=== PATIENT | female | born 1950 | race Hispanic/Latino ===

== ENCOUNTER → 2019-06-13 | Emergency (ER) | payer MEDICARE ==
[~2019-06-13] VITALS: Ht 154.9 cm; Wt 81.6 kg
[~2019-06-13] MED LIST: AMLODIPINE BESY10 MG PO; ASPIR 8181 MG PO; ASPIRIN 81 MG CHEW TAB PO ONE; ATORVASTATIN CA80 MG PO; BENZONATATE100 MG PO; CLOPIDOGREL75 MG PO; DICYCLOMINE HCL20 MG PO; ISOSORBIDE MONO20 MG PO; LISINOPRIL10 MG PO; METFORMIN HCL500 MG PO; METOPROLOL TART50 MG PO; NITROGLYCERIN0.4 MG SL; PANTOPRAZOLE SO40 MG PO; SUCRALFATE1 GM PO
--- OUTSIDE RECORDS SUMMARY | 2019-06-13 21:38 | XMS REPORT ---
Author Author [facility] Address Unknown Phone Unavailable Care Team Providers Care Financial Representative Name Role Phone Unavailable Unavailable Payers Payer Name Policy Type Policy Number Effective Date Expiration Date Problems This patient has no known problems. Allergies, Adverse Reactions, Alerts Allergy Name Allergy Type Status Severity Reaction(s) Onset Date Inactive Date Treating Clinician Comments No Known Allergies DA Active U 2011-08-03 00:00:00 Medications This patient has no known medications. Encounters Start Date/Time End Date/Time Encounter Type Admission Type Attending Clinicians Care Facility Care Department Encounter ID 2017-07-11 00:00:00 2017-07-11 00:00:00 Outpatient [facility] [id number] 2017-05-18 09:12:15 2017-05-18 09:12:15 Outpatient [facility] [id number] 2017-05-03 08:00:41 2017-05-03 08:00:41 Outpatient [facility] [id number] 2017-05-02 08:54:40 2017-05-02 08:54:40 Outpatient [facility] [id number] 2017-03-31 09:50:01 2017-03-31 09:50:01 Outpatient [facility] [id number] Results Test Description Test Time Test Comments Text Results Atomic Results Result Comments SCR MAMM BILATERAL MADAI CAD DIGITAL 2019-03-19 13:45:33 - SCR MAMM BILATERAL MADAI CAD DIGITALBILATERAL DIGITAL SCREENING MAMMOGRAM 3D/2D WITH CAD: 03/19/2019CLINICAL: Asymptomatic. Digital breast tomosynthesis was performed in addition to routine CC and MLO views. Current mammographic images were evaluated by either a [employer] M-Vu or a [employer] ImageChecker CAD (computer aided detection system). Comparison is made to exams dated 03/17/2018 mammogram - [facility], 08/26/2016 mammogram, and 07/30/2015 mammogram - [facility]. The tissue of both breasts is predominantly fatty. There are benign calcifications in both breasts. No suspicious mass, architectural distortion, malignant type calcification, or lymph node abnormality detected. Breast architecture is stable compared to prior exams.IMPRESSION: BENIGNThere is no mammographic evidence of malignancy. Resume annual screening mammography in one year. Lucas Lorenzo M.D. ss/penrad:03/19/2019 13:45:33 Automotive Refinisher: Nelia RIOS, [facility] sent: BIRADS 1-2 Normal Mammogram BI-RADS: 2 Benign GLUBED 2019-01-23 11:37:00 GLUBED (test code=GLUBED) 192 mg/dL 74-106 Performed by certified annealing oven operator at [facility] [id number] 06:17:00* Test Item Value Reference Range Comments GLUBED (test code=GLUBED) 116 mg/dL 74-106 Performed by certified annealing oven operator at [facility] BASIC METABOLIC [id number] 21:46:00* Test Item Value Reference Range Comments SODIUM (test code=NA) 139 mmol/L 136-145 POTASSIUM (test code=K) 4.0 mmol/L 3.5-5.1 CHLORIDE (test code=CL) 108.0 mmol/L 98-107 CARBON DIOXIDE (test code=CO2) 24.0 mmol/L 21-32 ANION GAP (test code=GAP) 11.0 10-20 GLUCOSE (test code=GLU) 163 mg/dL 74-106 BLOOD UREA NITROGEN (test code=BUN) 16 mg/dL 7-18 GLOMERULAR FILTRATION RATE (test code=GFR) > 60 mL/min >=60 Estimated GFR by using Modified MDRD formula.Chronic kidney disease is defined as either kidney damageor GFR <60 mL/min/1.73 m2 for >3 months. CREATININE (test code=CREAT) 0.80 mg/dL 0.55-1.02 Note change in reference range due to change in reagent. BUN/CREATININE RATIO (test code=BUN/CREA) 21.0 10-20 CALCIUM (test code=CA) 7.7 mg/dL 8.5-10.1 BASIC METABOLIC [id number] 21:39:00* Test Item Value Reference Range Comments SODIUM (test code=NA) 139 mmol/L 136-145 POTASSIUM (test code=K) 4.0 mmol/L 3.5-5.1 CHLORIDE (test code=CL) 108.0 mmol/L 98-107 CARBON DIOXIDE (test code=CO2) mmol/L 21-32 ANION GAP (test code=GAP) 10-20 GLUCOSE (test code=GLU) mg/dL 74-106 BLOOD UREA NITROGEN (test code=BUN) mg/dL 7-18 GLOMERULAR FILTRATION RATE (test code=GFR) mL/min >=60 CREATININE (test code=CREAT) mg/dL 0.55-1.02 BUN/CREATININE RATIO (test code=BUN/CREA) 10-20 CALCIUM (test code=CA) mg/dL 8.5-10.1 PROTHROMBIN [id number] 21:31:00* Test Item Value Reference Range Comments PROTHROMBIN TIME PATIENT (test code=PTP) 11.5 seconds 9.0-14.0 INTERNATIONAL NORMAL RATIO (test code=INR) 1.0 0.8-1.2 The therapeutic range for oral anticoagulant therapy formost indications is an international normalized ratio (INR)of between 2.0 and 3.0. The recommended therapeutic INRrange for various clinical situations is listed below: Clinical Situation INR range Pulmonary e mbolism treatment (2.0-3.0)Venous thrombosis treatmentVenous thrombosis prophylaxis (high risk surgery)Prevention of systemic embolism from: Acute myocardial infarction Valvular heart disease Atrial fibrillation Mechanical prosthetic heart valves (2.5-3.5) IS PATIENT ON ANTICOAGULANTS? YLIST ANTICOAGULANTS ASPIRINTHROMBOPLASTIN TIME [id number] 21:31:00* Test Item Value Reference Range Comments THROMBOPLASTIN TIME PARTIAL (test code=PTT) 28.2 seconds 25.0-36.5 IS PATIENT ON ANTICOAGULANTS? YLIST ANTICOAGULANTS ASPIRINCBC W/AUTO DIFF 2019-01-22 21:21:00* Test Item Value Reference Range Comments WHITE BLOOD CELL (test code=WBC) 10.6 K/mm3 4.5-12.5 RED BLOOD CELL (test code=RBC) 4.03 mill/mm3 3.7-5.2 HEMOGLOBIN (test code=HGB) 10.7 gram/dL 11.5-15.5 HEMATOCRIT (test code=HCT) 32.3 % 36.0-46.0 MEAN CELL VOLUME (test code=MCV) 80.1 fL 80-98 MEAN CELL HGB (test code=MCH) 26.6 picogram 27.0-33.0 MEAN CELL HGB CONCETRATION (test code=MCHC) 33.1 gram/dL 33.0-36.0 RED CELL DISTRIBUTION WIDTH (test code=RDW) 14.6 % 11.6-16.2 RED CELL DISTRIBUTION WIDTH SD (test code=RDW-SD) 42.5 fL 37.0-51.0 PLATELET COUNT (test code=PLT) 249 K/mm3 150-450 MEAN PLATELET VOLUME (test code=MPV) 9.6 fL 6.7-11.0 NEUTROPHIL % (test code=NT%) 68.7 % 39.0-69.0 IMMATURE GRANULOCYTE % (test code=IG%) 1.3 % 0.0-5.0 LYMPHOCYTE % (test code=LY%) 22.0 % 25.0-55.0 MONOCYTE % (test code=MO%) 7.8 % 0.0-10.0 EOSINOPHIL % (test code=EO%) 0.0 % 0.0-5.0 BASOPHIL % (test code=BA%) 0.2 % 0.0-1.0 NUCLEATED RBC % (test code=NRBC%) 0.0 % 0-0 NEUTROPHIL # (test code=NT#) 7.30 K/mm3 1.8-7.7 IMMATURE GRANULOCYTE # (test code=IG#) 0.14 x10 3/uL 0-0.03 LYMPHOCYTE # (test code=LY#) 2.34 K/mm3 1.0-5.0 MONOCYTE # (test code=MO#) 0.83 K/mm3 0-0.8 EOSINOPHIL # (test code=EO#) 0.00 K/mm3 0.0-0.5 BASOPHIL # (test code=BA#) 0.02 K/mm3 0.0-0.2 NUCLEATED RBC # (test code=NRBC#) 0.00 K/mm3 0.0-0.1 MANUAL DIFF REQUIRED (test code=MDIFF) NO [id number] 21:03:00* Test Item Value Reference Range Comments GLUBED (test code=GLUBED) 227 mg/dL 74-106 Performed by certified annealing oven operator at [facility] [id number] 19:21:00* Test Item Value Reference Range Comments GLUBED (test code=GLUBED) 136 mg/dL 74-106 Performed by certified annealing oven operator at [facility] COAGULATION TIME [id number] 12:23:00* Test Item Value Reference Range Comments COAGULATION TIME ACTIVATED (test code=ACT) 345 seconds 62.8-88.0 [id number] 11:44:00* Test Item Value Reference Range Comments GLUBED (test code=GLUBED) 131 mg/dL 74-106 Performed by certified annealing oven operator at [facility] PROTHROMBIN [id number] 06:55:00* Test Item Value Reference Range Comments PROTHROMBIN TIME PATIENT (test code=PTP) 11.4 seconds 9.0-14.0 INTERNATIONAL NORMAL RATIO (test code=INR) 0.9 0.8-1.2 The therapeutic range for oral anticoagulant therapy formost indications is an international normalized ratio (INR)of between 2.0 and 3.0. The recommended therapeutic INRrange for various clinical situations is listed below: Clinical Situation INR range Pulmonary e mbolism treatment (2.0-3.0)Venous thrombosis treatmentVenous thrombosis prophylaxis (high risk surgery)Prevention of systemic embolism from: Acute myocardial infarction Valvular heart disease Atrial fibrillation Mechanical prosthetic heart valves (2.5-3.5) IS PATIENT ON ANTICOAGULANTS? NTHROMBOPLASTIN TIME [id number] 06:55:00* Test Item Value Reference Range Comments THROMBOPLASTIN TIME PARTIAL (test code=PTT) 35.6 seconds 25.0-36.5 IS PATIENT ON ANTICOAGULANTS? NBASIC METABOLIC [id number] 06:49:00* Test Item Value Reference Range Comments SODIUM (test code=NA) 139 mmol/L 136-145 POTASSIUM (test code=K) 3.9 mmol/L 3.5-5.1 CHLORIDE (test code=CL) 109.0 mmol/L 98-107 CARBON DIOXIDE (test code=CO2) 22.0 mmol/L 21-32 ANION GAP (test code=GAP) 11.9 10-20 GLUCOSE (test code=GLU) 134 mg/dL 74-106 BLOOD UREA NITROGEN (test code=BUN) 20 mg/dL 7-18 GLOMERULAR FILTRATION RATE (test code=GFR) > 60 mL/min >=60 Estimated GFR by using Modified MDRD formula.Chronic kidney disease is defined as either kidney damageor GFR <60 mL/min/1.73 m2 for >3 months. CREATININE (test code=CREAT) 0.70 mg/dL 0.55-1.02 Note change in reference range due to change in reagent. BUN/CREATININE RATIO (test code=BUN/CREA) 28.3 10-20 CALCIUM (test code=CA) 8.1 mg/dL 8.5-10.1 LIPID PROFILE (CORONARY RISK)2019-01-22 06:49:00* Test Item Value Reference Range Comments TRIGLYCERIDES (test code=TRIG) 153 mg/dL 20-150 CHOLESTEROL (test code=CHOL) 158 mg/dL 0-200 CHOLESTEROL/HDL RATIO (test code=CHOLHDL) 3.0 RATIO 0-4.9 RISK ASSOCIATED WITH CHOL/HDL RATIOS: Risk Male Female1/2 AVERAGE 3.43 3.27AVERAGE 4.97 4.442X AVERAGE 9.55 7.053X AVERAGE 23.39 11.04 REFERENCE VALUE IS RELATED TO RISK LEVELS ASRECOMMENDED BY THE MANUEL. HEART, LUNG, AND BLOOD INST. HDL CHOLESTEROL (test code=HDL) 40 mg/dL 40-60 LIPOPROTEIN LDL (test code=LDL) 108 mg/dL 100-129 RN PERSONNEL, CONTACT PHYSICIAN IMMEDIATELY IF THIS IS A STROKE, AMI OR CAROTID STENOSIS PATIENT WHEN THE LDL >100 (1ST OCCURENCE, THIS ADMISSION) Reference Interval: mg/dL mmol/L Optimal <100 <2.6Near/above optimal 100-129 2.6- 3.3Borderline High 130-159 3.4-4.1High 160-189 4.1-4.9Very High >=190 >=4.9=========This LDL result is a direct measurement.========= BASIC METABOLIC [id number] 06:43:00* Test Item Value Reference Range Comments SODIUM (test code=NA) 139 mmol/L 136-145 POTASSIUM (test code=K) 3.9 mmol/L 3.5-5.1 CHLORIDE (test code=CL) 109.0 mmol/L 98-107 CARBON DIOXIDE (test code=CO2) mmol/L 21-32 ANION GAP (test code=GAP) 10-20 GLUCOSE (test code=GLU) mg/dL 74-106 BLOOD UREA NITROGEN (test code=BUN) mg/dL 7-18 GLOMERULAR FILTRATION RATE (test code=GFR) mL/min >=60 CREATININE (test code=CREAT) mg/dL 0.55-1.02 BUN/CREATININE RATIO (test code=BUN/CREA) 10-20 CALCIUM (test code=CA) mg/dL 8.5-10.1 LIPID PROFILE (CORONARY RISK)2019-01-22 06:43:00* Test Item Value Reference Range Comments TRIGLYCERIDES (test code=TRIG) mg/dL 20-150 CHOLESTEROL (test code=CHOL) mg/dL 0-200 CHOLESTEROL/HDL RATIO (test code=CHOLHDL) RATIO 0-4.9 HDL CHOLESTEROL (test code=HDL) mg/dL 40-60 LIPOPROTEIN LDL (test code=LDL) mg/dL 100-129 CBC W/AUTO [id number] 06:26:00* Test Item Value Reference Range Comments WHITE BLOOD CELL (test code=WBC) 10.7 K/mm3 4.5-12.5 RED BLOOD CELL (test code=RBC) 4.35 mill/mm3 3.7-5.2 HEMOGLOBIN (test code=HGB) 11.4 gram/dL 11.5-15.5 HEMATOCRIT (test code=HCT) 34.4 % 36.0-46.0 MEAN CELL VOLUME (test code=MCV) 79.1 fL 80-98 MEAN CELL HGB (test code=MCH) 26.2 picogram 27.0-33.0 MEAN CELL HGB CONCETRATION (test code=MCHC) 33.1 gram/dL 33.0-36.0 RED CELL DISTRIBUTION WIDTH (test code=RDW) 14.6 % 11.6-16.2 RED CELL DISTRIBUTION WIDTH SD (test code=RDW-SD) 41.8 fL 37.0-51.0 PLATELET COUNT (test code=PLT) 275 K/mm3 150-450 MEAN PLATELET VOLUME (test code=MPV) 10.5 fL 6.7-11.0 NEUTROPHIL % (test code=NT%) 65.4 % 39.0-69.0 IMMATURE GRANULOCYTE % (test code=IG%) 1.0 % 0.0-5.0 LYMPHOCYTE % (test code=LY%) 26.6 % 25.0-55.0 MONOCYTE % (test code=MO%) 6.7 % 0.0-10.0 EOSINOPHIL % (test code=EO%) 0.0 % 0.0-5.0 BASOPHIL % (test code=BA%) 0.3 % 0.0-1.0 NUCLEATED RBC % (test code=NRBC%) 0.0 % 0-0 NEUTROPHIL # (test code=NT#) 6.98 K/mm3 1.8-7.7 IMMATURE GRANULOCYTE # (test code=IG#) 0.11 x10 3/uL 0-0.03 LYMPHOCYTE # (test code=LY#) 2.84 K/mm3 1.0-5.0 MONOCYTE # (test code=MO#) 0.72 K/mm3 0-0.8 EOSINOPHIL # (test code=EO#) 0.00 K/mm3 0.0-0.5 BASOPHIL # (test code=BA#) 0.03 K/mm3 0.0-0.2 NUCLEATED RBC # (test code=NRBC#) 0.00 K/mm3 0.0-0.1 [id number] 20:58:00* Test Item Value Reference Range Comments GLUBED (test code=GLUBED) 181 mg/dL 74-106 Performed by certified annealing oven operator at [facility] [id number] 17:56:00* Test Item Value Reference Range Comments GLUBED (test code=GLUBED) 234 mg/dL 74-106 Performed by certified annealing oven operator at [facility] [id number] 16:18:00* Test Item Value Reference Range Comments GLUBED (test code=GLUBED) 218 mg/dL 74-106 Performed by certified annealing oven operator at [facility] [id number] 08:25:00* Test Item Value Reference Range Comments GLYCOSYLATED HEMOGLOBIN (HA1C) (test code=GLYHGB) 7.6 % HbA1 4.8-6.0 ESTIMATED AVERAGE GLUCOSE (test code=EAG) 171 MG/DL LIPID PROFILE (CORONARY RISK)2019-01-21 08:17:00* Test Item Value Reference Range Comments TRIGLYCERIDES (test code=TRIG) 82 mg/dL 20-150 CHOLESTEROL (test code=CHOL) 147 mg/dL 0-200 CHOLESTEROL/HDL RATIO (test code=CHOLHDL) 3.0 RATIO 0-4.9 RISK ASSOCIATED WITH CHOL/HDL RATIOS: Risk Male Female1/2 AVERAGE 3.43 3.27AVERAGE 4.97 4.442X AVERAGE 9.55 7.053X AVERAGE 23.39 11.04 REFERENCE VALUE IS RELATED TO RISK LEVELS ASRECOMMENDED BY THE MANUEL. HEART, LUNG, AND BLOOD INST. HDL CHOLESTEROL (test code=HDL) 45 mg/dL 40-60 LIPOPROTEIN LDL (test code=LDL) 97 mg/dL 100-129 Reference Interval: mg/dL mmol/L Optimal <100 <2.6Near/above optimal 100-129 2.6- 3.3Borderline High 130-159 3.4-4.1High 160-189 4.1-4.9Very High >=190 >=4.9=========This LDL result is a direct measurement.========= [id number] 08:17:00* Test Item Value Reference Range Comments MAGNESIUM (test code=MAG) 1.7 mg/dL 1.8-2.4 [id number] 07:39:00* Test Item Value Reference Range Comments TROPONIN-I (test code=TROPI) 1.140 ng/mL 0-0.045 [id number] 06:22:00* Test Item Value Reference Range Comments GLUBED (test code=GLUBED) 155 mg/dL 74-106 Performed by certified annealing oven operator at [facility] [id number] 05:58:00* Test Item Value Reference Range Comments TROPONIN-I (test code=TROPI) 0.880 ng/mL 0-0.045 Results called to [id number] by GERMAN 01/21/19 0557Critical results verified and read back by Nurse? Y [id number] 21:38:00* Test Item Value Reference Range Comments GLUBED (test code=GLUBED) 255 mg/dL 74-106 Performed by certified annealing oven operator at [facility] - XR CHEST 1 [id number] 21:03:00 [facility] 1950 Age/S:68 /F [address] [facility] Unit#:[id number] Loc: Leny Garcia [address] Phys: Iris Winter MD Dis Date: PHONE #: [phone] Status: REG ER FAX #: [phone] Exam Date: 01/20/2019 Reason: CHEST PAIN EXAMS: CPT CODE: [id number] XR CHEST 1 V [id number] REASON FOR EXAM: CHEST PAIN EXAM ORDER DATE: 01/20/2019 8:19 PM Ordering Elva: Iris Winter MD PROCEDURE: - XR CHEST 1 V COMPARISON: FINDINGS: Portable AP frontal view of the chest obtained at 8:37 PM shows clear lungs without evidence of consolidation. There is no evidence of effusion. The heart size is minimally enlarged. Pulmonary vasculatures are unremarkable. IMPRESSION: No active disease. at 2102 Reported and signed by: Junior Al M.D. CC: Iris Winter MD; Davie Haywood MD Technologist: TEREZA CARVAJAL RT(R),CT Trnscrpt Data: 01/20/2019 (2102) t.SDR.VTL Orig Print D/T: S: 01/20/2019 (2105) PAGE 1 Signed Report BASIC METABOLIC [id number] 20:56:00* Test Item Value Reference Range Comments SODIUM (test code=NA) 139 mmol/L 135-148 POTASSIUM (test code=K) 4.3 mmol/L 3.5-5.1 CHLORIDE (test code=CL) 104 mmol/L 101-109 CARBON DIOXIDE (test code=CO2) 18.3 mmol/L 21-32 ANION GAP (test code=GAP) 21 mmol/L 10-20 GLUCOSE (test code=GLU) 330 mg/dL 74-106 BLOOD UREA NITROGEN (test code=BUN) 15 mg/dL 3-21 GLOMERULAR FILTRATION RATE (test code=GFR) 57 mL/min >=60 Estimated GFR by using Modified MDRD formula.Chronic kidney disease is defined as either kidney damageor GFR <60 mL/min/1.73 m2 for >3 months. CREATININE (test code=CREAT) 0.98 mg/dL 0.55-1.3 BUN/CREATININE RATIO (test code=BUN/CREA) 15.3 10-20 CALCIUM (test code=CA) 8.7 mg/dL 8.4-10.2 [id number] 20:56:00* Test Item Value Reference Range Comments MAGNESIUM (test code=MAG) 1.3 mg/dL 1.6-2.3 [id number] 20:56:00* Test Item Value Reference Range Comments TROPONIN-I (test code=TROPI) <0.015 ng/mL 0.00-0.056 CBC W/O [id number] 20:39:00* Test Item Value Reference Range Comments WHITE BLOOD CELL (test code=WBC) 7.2 K/mm3 4.5-12.5 RED BLOOD CELL (test code=RBC) 4.53 mill/mm3 3.7-5.2 HEMOGLOBIN (test code=HGB) 12.0 gram/dL 11.5-15.5 HEMATOCRIT (test code=HCT) 35.9 % 36.0-46.0 MEAN CELL VOLUME (test code=MCV) 79.2 fL 80-98 MEAN CELL HGB (test code=MCH) 26.5 picogram 27.0-33.0 MEAN CELL HGB CONCETRATION (test code=MCHC) 33.4 gram/dL 33.0-36.0 RED CELL DISTRIBUTION WIDTH (test code=RDW) 14.8 % 11.6-16.2 RED CELL DISTRIBUTION WIDTH SD (test code=RDW-SD) 41.6 fL 39.1-52.0 PLATELET COUNT (test code=PLT) 237 K/mm3 150-450 MEAN PLATELET VOLUME (test code=MPV) 10.3 fL 6.7-11.0
--- NOTE | 2019-06-13 22:55 | NUR ---
WALKING ROUNDS COMPLETED WITH FELICITAS ROBINS; FULL REPORT GIVEN, PT UPDATED WITH PLAN OF CARE, DENIES ANY C/O PAIN AT THIS TIME.
[2019-06-13 22:59] LABS: BASOPHILS % 0.4 % (0.0-1.0); EOSINOPHILS % 0.1 % (0.0-6.0); HEMATOCRIT 36.7 % (34.2-44.1); HEMOGLOBIN 11.9 g/dL (12.0-16.0); LYMPHOCYTES # (AUTO) 1.6 (1.0-3.2); LYMPHOCYTES % 22.1 % (18.0-39.1); MEAN CORPUSCULAR HEMOGLOBIN 26.6 pg (28-32); MEAN CORPUSCULAR HGB CONC 32.4 g/dL (31-35); MEAN CORPUSCULAR VOLUME 82.1 fL (81-99); MONOCYTES # (AUTO) 0.6 (0.2-0.8); MONOCYTES % 7.9 % (4.4-11.3); NEUTROPHILS # (AUTO) 5.1 (2.1-6.9); NEUTROPHILS % 69.1 % (38.7-80.0); PLATELET COUNT 229 x10e3/uL (140-360); RED BLOOD COUNT 4.47 x10e6/uL (3.6-5.1)
[2019-06-13 23:27] LABS: ALANINE AMINOTRANSFERASE 22 IU/L (0-55); ALBUMIN 4.5 g/dL (3.5-5.0); ALBUMIN/GLOBULIN RATIO 1.5 (0.8-2.0); ALKALINE PHOSPHATASE 70 IU/L (40-150); ANION GAP 15.3 mmol/L (8-16); BLOOD UREA NITROGEN 18 mg/dL (7-26); BUN/CREATININE RATIO 20 (6-25); CALCIUM 9.7 mg/dL (8.4-10.2); CARBON DIOXIDE 25 mmol/L (22-29); CHLORIDE 100 mmol/L (98-107); CREATINE KINASE 47 IU/L (29-168); CREATININE, SERUM 0.88 mg/dL (0.57-1.11); EST GLOMERULAR FILTRATION RATE > 60 ML/MIN (60-); GLUCOSE 187 mg/dL (74-118); POTASSIUM 4.3 mmol/L (3.5-5.1); SODIUM 136 mmol/L (136-145)
--- NOTE | 2019-06-13 23:44 | Diagnostic Imaging Report ---
EXAMINATION: CHEST SINGLE (PORTABLE) INDICATION: ^chest pain ^[id number] ^[id number] COMPARISON: None FINDINGS: AP view TUBES and LINES: None. LUNGS: Lungs are well inflated. There is no evidence of pneumonia or pulmonary edema. PLEURA: No pleural effusion or pneumothorax. HEART AND MEDIASTINUM: The cardiomediastinal silhouette is unremarkable. Aorta is mildly calcified and tortuous. BONES AND SOFT TISSUES: No acute osseous lesion. Soft tissues are unremarkable. UPPER ABDOMEN: No free air under the diaphragm. IMPRESSION: No acute thoracic abnormality. Signed by: Dr. Tk Dumont MD on 06/13/2019 11:41 PM
[2019-06-14 00:11] VITALS: BP 104/60
== END | disposition home or self-care (01) ==
LOC: ER 21:35
DX: R07.2 Precordial pain (principal); R06.02 Shortness of breath; R10.13 Epigastric pain
CPT/HCPCS: 36415; 71045; 80053; 82550; 82553; 84484; 85025; 93005; 99284

== ENCOUNTER 2019-07-12 10:00 | Observation (INO) | payer MEDICARE ==
[~2019-07-12] VITALS: Ht 154.9 cm; Wt 75.6 kg
[~2019-07-12 10:00] MED LIST changes: -AMLODIPINE BESY10 MG PO; -ASPIR 8181 MG PO; -ATORVASTATIN CA80 MG PO; -BENZONATATE100 MG PO; -CLOPIDOGREL75 MG PO; -DICYCLOMINE HCL20 MG PO; -IOPAMIDOL 370 MG/ML 200 ML INFUS..BTL INJ ONE; -ISOSORBIDE MONO20 MG PO; -LISINOPRIL10 MG PO; -METFORMIN HCL500 MG PO; -METOPROLOL TART50 MG PO; -NITROGLYCERIN0.4 MG SL; +ONDANSETRON HCL INJ 2MG/ML 2ML 2 MG/ML VIAL IV STA; +PANTOPRAZOLE 40 MG 10ML VIAL IV STA; -PANTOPRAZOLE SO40 MG PO; -SODIUM CHLORIDE 0.9% 50ML 50 ML ONE; -SUCRALFATE1 GM PO
[2019-07-12 10:40] LABS: BASOPHILS % 0.1 % (0.0-1.0); EOSINOPHILS % 0.4 % (0.0-6.0); HEMATOCRIT 37.5 % (34.2-44.1); HEMOGLOBIN 12.6 g/dL (12.0-16.0); LYMPHOCYTES # (AUTO) 2.5 (1.0-3.2); LYMPHOCYTES % 36.8 % (18.0-39.1); MEAN CORPUSCULAR HEMOGLOBIN 26.8 pg (28-32); MEAN CORPUSCULAR HGB CONC 33.6 g/dL (31-35); MEAN CORPUSCULAR VOLUME 79.8 fL (81-99); MONOCYTES # (AUTO) 0.5 (0.2-0.8); MONOCYTES % 7.8 % (4.4-11.3); NEUTROPHILS # (AUTO) 3.7 (2.1-6.9); NEUTROPHILS % 54.3 % (38.7-80.0); PLATELET COUNT 227 x10e3/uL (140-360); RED CELL DISTRIBUTION WIDTH 14.1 % (11.7-14.4)
[2019-07-12 10:59] LABS: ALANINE AMINOTRANSFERASE 20 IU/L (0-55); ALBUMIN 4.7 g/dL (3.5-5.0); ALBUMIN/GLOBULIN RATIO 1.7 (0.8-2.0); ALKALINE PHOSPHATASE 62 IU/L (40-150); ANION GAP 15.4 mmol/L (8-16); BLOOD UREA NITROGEN 15 mg/dL (7-26); BUN/CREATININE RATIO 19 (6-25); CARBON DIOXIDE 20 mmol/L (22-29); CHLORIDE 96 mmol/L (98-107); CREATINE KINASE 53 IU/L (29-168); CREATININE, SERUM 0.81 mg/dL (0.57-1.11); EST GLOMERULAR FILTRATION RATE > 60 ML/MIN (60-); GLUCOSE 109 mg/dL (74-118); LIPASE 34 U/L (8-78); POTASSIUM 4.4 mmol/L (3.5-5.1); SODIUM 127 mmol/L (136-145)
[2019-07-12 12:25] LABS: BILIRUBIN,URINE NEGATIVE (NEGATIVE); CLARITY,URINE CLEAR (CLEAR); COLOR,URINE YELLOW (YELLOW); KETONES,URINE NEGATIVE (NEGATIVE); LEUKOCYTE ESTERASE ,URINE NEGATIVE (NEGATIVE); NITRITE,URINE NEGATIVE (NEGATIVE); PROTEIN,URINE DIPSTICK NEGATIVE (NEGATIVE); URINE UROBILINOGEN 0.2 mg/dL (0.2 - 1)
[2019-07-12 12:37] LABS: BACTERIA,URINE MANY /HPF; EPITHELIAL CELLS,URINE FEW /LPF; RBC,URINE 0-5 /HPF (0-5)
--- NOTE | 2019-07-12 12:50 | Diagnostic Imaging Report ---
Exam: Chest one view Clinical history: Chest pain Findings: There is no evidence of pulmonary consolidation, pleural effusion, or pneumothorax. The cardiac size is within normal limits. The visualized osseous structures are unremarkable. Impression: 1. No radiographic evidence of acute cardiorespiratory disease. Signed by: Dr. Ulises Perkins MD on 07/12/2019 12:47 PM
[2019-07-12] MEDS ORDERED: ASPIRIN 81 MG CHEW TAB PO ONE ×2 (13:15→15:30)
--- NOTE | 2019-07-12 14:40 | Consultation ---
DATE OF CONSULTATION: 07/12/2019 Cardiology Consultation CONSULTING PHYSICIAN: Sanjay Nunez M.D., Interventional Cardiology. REASON FOR CONSULTATION: Chest pain. HISTORY OF PRESENT ILLNESS: Ms. Taylor is a pleasant 68-year-old woman with type 2 diabetes, hypertension, dyslipidemia, coronary artery disease status post multivessel drug-eluting stent PCI, presenting with recurrent episodes of atypical chest discomfort for which she is undergoing GI evaluation. Today, as outpatient, she was undergoing upper GI series after intake of contrast, the patient reported onset of discomfort worse with change in position and unaffected by exertion, nonradiating and not associated with other symptoms including shortness of breath, syncope, lightheadedness, or palpitations. Her initial cardiac biomarkers were negative. Her EKG shows sinus rhythm with left ventricular hypertrophy and repolarization abnormality. REVIEW OF SYSTEMS: A 12-system review is negative except for as noted above. PAST MEDICAL HISTORY: As per HPI. SOCIAL HISTORY: No active smoking, alcohol, or drugs. FAMILY HISTORY: Noncontributory. PHYSICAL EXAMINATION: VITAL SIGNS: Temperature 97.5, heart rate 76, respiratory rate 18, blood pressure 113/45, O2 saturation 98%. GENERAL: In no acute distress, alert. NECK: No JVD. CHEST: Clear to auscultation. CARDIOVASCULAR: Regular rate and rhythm. Normal S1 and S2. No S3, no S4. ABDOMEN: Soft, nontender. EXTREMITIES: No cyanosis, clubbing or edema. CARDIOVASCULAR MEDICATIONS: Reviewed. LABORATORY DATA: Studies reviewed. White blood cells 6.7, hemoglobin 12.6, platelets 227. PTT 32, creatinine 0.8, potassium 4.4, and sodium 127. AST 26, ALT 20. BNP 130. Troponin I 0.046. Lipase 34, albumin 4.7. Normal transaminases. Chest x-ray, no radiographic evidence of active cardiopulmonary disease. ASSESSMENT: 1. A 68-year-old woman presents with atypical chest pain. 2. Coronary artery disease with history of drug-eluting stent percutaneous coronary intervention. 3. Preserved left ventricular systolic function on previous imaging studies. 4. Hypertension and dyslipidemia. 5. Diabetes mellitus. RECOMMENDATIONS: 1. Continue GI evaluation. 2. Continue antiplatelet therapy, statin therapy and antihypertensives. 3. Okay to discharge from a cardiovascular standpoint. Second set of enzymes is negative. The patient continues to remain with improved symptoms. 4. Continue GI evaluation at the discretion of her primary rolloff truck driver. MD FLOYD Jeronimo/STEVEN /[phone]
[2019-07-12 14:43] LABS: CREATINE KINASE MB 1.7 ng/mL (0-5.0)
[2019-07-12] MEDS ORDERED: MORPHINE SULFATE 2 MG/ML SYR 1ML IV PRN (15:30)
[2019-07-12] MEDS ORDERED: ONDANSETRON HCL INJ 2MG/ML 2ML 2 MG/ML VIAL IV PRN (15:30)
[2019-07-12 17:17] VITALS: BP 122/58
[2019-07-12 18:12] VITALS: BP 122/58
[2019-07-12 18:56] VITALS: BP 122/58
[2019-07-12] MEDS: SODIUM CHLORIDE 0.9% 1000ML 1,000 ML IV SCH (19:16)
[2019-07-12 20:00] VITALS: BP 116/68
[2019-07-12] MEDS ORDERED: ASPIR 8181 MG PO (20:04)
[2019-07-12] MEDS ORDERED: LISINOPRIL10 MG PO (20:04)
[2019-07-12] MEDS ORDERED: ATORVASTATIN CA80 MG PO (20:04)
[2019-07-12] MEDS ORDERED: CLOPIDOGREL75 MG PO (20:04)
[2019-07-12] MEDS ORDERED: METFORMIN HCL500 MG PO (20:04)
[2019-07-12] MEDS ORDERED: AMLODIPINE BESY10 MG PO (20:04)
[2019-07-12] MEDS ORDERED: NITROGLYCERIN0.4 MG SL (20:04)
[2019-07-12] MEDS ORDERED: ISOSORBIDE MONO20 MG PO (20:04)
[2019-07-12] MEDS ORDERED: BENZONATATE100 MG PO (20:04)
[2019-07-12] MEDS ORDERED: METOPROLOL TART50 MG PO (20:04)
[2019-07-12 20:30] VITALS: BP 116/68
[2019-07-12 23:54] LABS: CREATINE KINASE MB 1.4 ng/mL (0-5.0)
[2019-07-13] VITALS (8 sets, daily range): BP systolic 114–142; BP diastolic 60–83
[2019-07-13] MEDS: SODIUM CHLORIDE 0.9% 1000ML 1,000 ML IV SCH ×3 (04:42→21:01)
[2019-07-13 05:26] LABS: BASOPHILS % 0.4 % (0.0-1.0); EOSINOPHILS # (AUTO) 0.1 (0.0-0.4); EOSINOPHILS % 0.9 % (0.0-6.0); HEMATOCRIT 31.8 % (34.2-44.1); HEMOGLOBIN 10.6 g/dL (12.0-16.0); LYMPHOCYTES % 36.3 % (18.0-39.1); MEAN CORPUSCULAR HEMOGLOBIN 26.7 pg (28-32); MEAN CORPUSCULAR HGB CONC 33.3 g/dL (31-35); MEAN CORPUSCULAR VOLUME 80.1 fL (81-99); MONOCYTES # (AUTO) 0.5 (0.2-0.8); NEUTROPHILS % 53.9 % (38.7-80.0); PLATELET COUNT 197 x10e3/uL (140-360); RED BLOOD COUNT 3.97 x10e6/uL (3.6-5.1); RED CELL DISTRIBUTION WIDTH 14.4 % (11.7-14.4)
[2019-07-13 05:53] LABS: CREATINE KINASE MB 1.6 ng/mL (0-5.0)
[2019-07-13 06:22] LABS: ANION GAP 13.1 mmol/L (8-16); BLOOD UREA NITROGEN 12 mg/dL (7-26); BUN/CREATININE RATIO 16 (6-25); CALCIUM 8.9 mg/dL (8.4-10.2); CARBON DIOXIDE 19 mmol/L (22-29); CHLORIDE 109 mmol/L (98-107); CREATININE, SERUM 0.76 mg/dL (0.57-1.11); EST GLOMERULAR FILTRATION RATE > 60 ML/MIN (60-); GLUCOSE 95 mg/dL (74-118); POTASSIUM 4.1 mmol/L (3.5-5.1); SODIUM 137 mmol/L (136-145)
--- NOTE | 2019-07-13 07:26 | NUR ---
Report given to FELICITAS Paniagua.
[2019-07-13] MEDS ORDERED: ASPIRIN 81 MG ENTERIC COATED PO SCH (09:00)
[2019-07-13] MEDS ORDERED: BENZONATATE 100 MG CAP PO PRN (11:00)
--- NOTE | 2019-07-13 11:45 | Progress Note ---
DATE: 07/13/2019 Cardiology Progress Note SUBJECTIVE: The patient did well overnight, however, had a bout of epigastric discomfort after breakfast this morning once more. She denies any exertional symptoms. OBJECTIVE: VITAL SIGNS: Temperature 96.7, heart rate 68, respiratory rate 17, blood pressure 130/76, O2 saturation 97% on room air. GENERAL: No acute distress, alert. NECK: No JVD. CHEST: Clear to auscultation. CARDIOVASCULAR: Regular rate and rhythm. Normal S1 and S2. ABDOMEN: Soft. EXTREMITIES: No edema. CARDIOVASCULAR MEDICATIONS: Reviewed. White blood cells 5.6, hemoglobin 10.6, platelets 197. Sodium 137, potassium 4.1, chloride 109, bicarbonate 19, BUN 12, creatinine 0.7. Serial cardiac biomarkers all negative. BNP 130. TELEMETRY: Sinus rhythm. ASSESSMENT: 1. A 68-year-old man with atypical chest pain/epigastric pain. 2. Coronary artery disease with history of drug-eluting stent percutaneous coronary intervention. 3. Preserved left ventricular systolic function on previous imaging studies. 4. Hypertension. 5. Dyslipidemia. 6. Diabetes mellitus. RECOMMENDATIONS: 1. Continue GI assessment. 2. Resume dual anti-platelet therapy, statin therapy and antihypertensives. 3. Okay to discharge from a cardiovascular standpoint with GI evaluation at the discretion of primary Gastroenterology. MD FLOYD Jeronimo/STEVEN /[phone]
[2019-07-13] MEDS: AMLODIPINE BESYLATE 10 MG TAB PO SCH (12:15)
[2019-07-13] MEDS: CLOPIDOGREL BISULFATE 75 MG TAB PO SCH (12:15)
[2019-07-13] MEDS: ISOSORBIDE MONONITRATE 30 MG TAB CR PO SCH (12:15)
[2019-07-13] MEDS ORDERED: SOD PHOSPHATE/SOD BIPHOSPHATE ENEMA 132 ML BTL PR ONE (15:00)
[2019-07-13 15:12] LABS: CREATINE KINASE MB 1.9 ng/mL (0-5.0)
--- NOTE | 2019-07-13 15:52 | History and Physical ---
HISTORY OF PRESENT ILLNESS: The patient is a 68-year-old female with past medical history positive for hypertension, diabetes, coronary artery disease, status post stent placement back in January of this year, came here with severe epigastric and chest pain radiating to the back. REVIEW OF SYSTEMS: CARDIOVASCULAR: She has chest pain. No palpitation. RESPIRATORY: Shortness of breath whenever she has a chest pain. No cough. GASTROINTESTINAL: She does not have any nausea. She vomited before. She has severe epigastric pain radiated to the back. No blood in the stools. No black stools. No vomiting blood. ALLERGIES: SHE IS NOT ALLERGIC TO ANY MEDICATION. SOCIAL HISTORY: She does not smoke. She does not drink. PAST MEDICAL HISTORY: Coronary artery disease status post stent placement, hypertension, and diabetes. PHYSICAL EXAMINATION: VITAL SIGNS: Blood pressure 142/83, temperature 98.2, heart rate 70 per minute, respiratory rate 19 per minute, and oxygen saturation 98%. HEART: Showed regular rhythm. Normal S1 and S2 sounds. LUNGS: Clear bilaterally. ABDOMEN: Soft. No distention. Minimal tenderness in the epigastric area. EXTREMITIES: Show no evidence of cyanosis or hematoma. LABORATORY DATA: On the BMP; sodium 137, potassium 4.1, chloride 109, CO2 19, BUN 12, creatinine 0.76, and glucose 95. On the CBC; white blood count 5.62, hemoglobin 10.6, hematocrit 31.8, and platelet count of 187,000. PTT 32.7. AST 26, ALT 20, total bilirubin 0.5, and alkaline phosphatase 62. Troponin x3 completely normal. On the EKG; sinus rhythm. T-wave inversions 1, 2, 3, aVL, V2, V3, V4, V5, and V6. No evidence of any ST-segment elevation or depression. She also had a Q-wave in lead 3 and V1. PLAN OF TREATMENT: Cardiology consult with Dr. Keenan, who knows the patient very well. Dr. Flores for Gastroenterology. Abdomen CT has been ordered. We are going to continue normal saline 75 mL an hour, Zofran 4 mg IV q.4 hours as needed, morphine 2 mg IV q.4 hours as needed, Tessalon 100 mg q.8 hours as needed, Plavix 75 mg daily, Tylenol 650 mg q.4 hours as needed, metoprolol 50 mg twice a day, isosorbide mononitrate 60 mg daily, Protonix 40 mg twice a day, amlodipine 10 mg daily, lisinopril 40 mg daily, aspirin 81 mg daily, Lipitor 80 mg daily, and Carafate 1 g before meals. MD HEIDI Smalls/STEVEN /[id number]
[2019-07-13] MEDS: METOPROLOL TARTRATE 50 MG TAB PO SCH (17:45)
[2019-07-13] MEDS: PANTOPRAZOLE SOD 40 MG TABEC PO SCH (17:45)
--- NOTE | 2019-07-13 19:00 | NUR ---
rounded with surgical physician assistant nurse, patient aware of change and in no distress. call morgan within reach and bed in lowest position.
[2019-07-13] MEDS ORDERED: NON-FORMULARY MEDICATION (Atorvastatin Calcium 80 MG) PO SCH (21:00)
[2019-07-13] MEDS ORDERED: ATORVASTATIN 40 MG TAB PO SCH (21:00)
[2019-07-14] VITALS: BP 106/55
--- NOTE | 2019-07-14 00:44 | Consultation ---
DATE OF CONSULTATION: 07/13/2019 GI Consult REASON FOR CONSULT: Noncardiac chest pain. HISTORY OF PRESENTING ILLNESS: [age] years old very pleasant female who has been experiencing intermittently persistent recurrent retrosternal chest pain for few days, this got worse today, ended up in the emergency room. Cardiac marker was negative. The patient has underlying reflux. She is not on any proton-pump inhibitor on a regular basis. No lower GI symptoms. No associated dysphagia, odynophagia, early satiation or weight loss. REVIEW OF SYSTEMS: Twelve point system reviewed, symptomatology is limited as per HPI. PAST MEDICAL HISTORY: Coronary artery disease, hypertension, hyperlipidemia and type 2 diabetes. PAST SURGICAL HISTORY: PCI with coronary stent. FAMILY HISTORY: Noncontributory. SOCIAL HISTORY: No smoking, alcohol, or any illicit drug use. HOME MEDICATIONS: Amlodipine, aspirin, atorvastatin, benzonatate, clopidogrel, isosorbide mononitrate, lisinopril, metformin, metoprolol, and nitroglycerin. INPATIENT MEDICATIONS: Reviewed as per MAR, patient has been started on pantoprazole 40 mg twice daily. PHYSICAL EXAMINATION: VITAL SIGNS: Temperature 96.9, pulse 64, respirations 18, blood pressure 124/64, oxygen saturation 99% on room air. GENERAL: Not in any acute distress. HEENT: Oral mucosa is moist. Anicteric sclerae. CVS: S1, S2 regular. LUNGS: Bilaterally grossly clear. ABDOMEN: Soft. Mild palpable epigastric tenderness on deep palpation without rebound, rigidity, or guarding. Positive bowel sounds. EXTREMITIES: Warm. No leg edema. LABORATORY DATA: Sodium 137, potassium 4.1, chloride 109, bicarb 19, BUN 12, creatinine 0.76 and glucose 95. Liver enzymes normal. WBC 5.62, hemoglobin 10.6, hematocrit 31.8, MCV 80.1, and platelet count 197. Chest x-ray, no radiographic evidence of acute cardiorespiratory disease. IMPRESSION: Noncardiac chest pain as well as epigastric pain. This is likely due to underlying gastroesophageal reflux disease, gastritis, peptic ulcer disease unlikely (as the patient does not have any risk factor). PLAN: Continue present medical management. Agree to continue PPI. Avoid NSAIDs. The patient can be discharged from GI standpoint. I have given her my business card. I will follow her in my office in one week. I spoke to patient's daughter, Maylin over the phone. She speaks good Bengali. She also helped to translate between us. The patient's daughter will bring her to my office next week. Norris Quinn MD SA/STEVEN /[id number]
[2019-07-14 04:00] VITALS: BP 136/85
--- NOTE | 2019-07-14 06:55 | NUR ---
rounded with night shift supervisor nurse patient aware of change and in no distress. call morgan within reach and bed in lowest position.
[2019-07-14] MEDS: AMLODIPINE BESYLATE 10 MG TAB PO SCH (07:58)
[2019-07-14] MEDS: CLOPIDOGREL BISULFATE 75 MG TAB PO SCH (07:58)
[2019-07-14] MEDS: PANTOPRAZOLE SOD 40 MG TABEC PO SCH (07:58)
[2019-07-14] MEDS: METOPROLOL TARTRATE 50 MG TAB PO SCH (07:58)
[2019-07-14] MEDS: ISOSORBIDE MONONITRATE 30 MG TAB CR PO SCH (07:58)
[2019-07-14 08:30] VITALS: BP 147/101
[2019-07-14] MEDS ORDERED: LISINOPRIL 10 MG TAB PO SCH (09:00)
[2019-07-14] MEDS ORDERED: ASPIRIN 81 MG CHEW TAB PO SCH (09:00)
[2019-07-14] MEDS ORDERED: LISINOPRIL 20 MG TAB PO SCH (09:00)
[2019-07-14] MEDS ORDERED: ISOSORBIDE MONONITRATE 20 MG TAB PO SCH (09:00)
[2019-07-14 09:01] VITALS: BP 147/101
[2019-07-14] MEDS: ACETAMINOPHEN 325 MG TAB PO PRN ×2 (09:10→14:20)
[2019-07-14 11:18] VITALS: BP 96/60
[2019-07-14] MEDS ORDERED: SUCRALFATE1 GM PO (12:05)
[2019-07-14] MEDS ORDERED: DICYCLOMINE HCL20 MG PO (12:05)
[2019-07-14] MEDS ORDERED: PANTOPRAZOLE SO40 MG PO (12:05)
--- NOTE | 2019-07-14 15:36 | Progress Note ---
DATE: 07/14/2019 Cardiology Progress Note SUBJECTIVE: Denies any chest discomfort or shortness of breath. Feels better overall. GI has seen the patient and coordinating plan with the patient. OBJECTIVE: VITAL SIGNS: Temperature 95.9, heart rate 57, blood pressure 96/60, respiratory rate 20, and O2 saturation 94%. GENERAL: No acute distress. Alert. NECK: No JVD. CHEST: Clear to auscultation. CARDIOVASCULAR: Regular rate and rhythm. Normal S1 and S2. No S3, no S4. ABDOMEN: Soft and nontender. EXTREMITIES: No edema. SKIN: Dry and intact. CARDIOVASCULAR MEDICATIONS: Reviewed. Clopidogrel 75 mg daily, metoprolol tartrate 50 mg b.i.d., isosorbide mononitrate 60 mg daily, amlodipine 10 mg daily, lisinopril 40 mg daily, aspirin 81 mg daily, and atorvastatin 80 mg daily. STUDIES: Reviewed. Sodium 137, potassium 4.1, chloride 109, bicarbonate 19, BUN 12, creatinine 0.76, and glucose 95. White blood cells 5.6, hemoglobin 10.6, and platelets of 197. PTT 32.7. AST 26, ALT 20, alkaline phosphatase 62, and total bilirubin 0.5. ASSESSMENT: A 68-year-old woman with history of coronary disease, status post drug-eluting stent and PCI, presents with dyspepsia, history of hypertension, dyslipidemia, morbid obesity, diabetes mellitus, and preserved left ventricular systolic function on previous imaging studies. RECOMMENDATIONS: 1. Continue antiplatelet therapy for recent drug-eluting stent. 2. Continue statin and antihypertensives. 3. Continue GI evaluation. 4. On telemetry, sinus rhythm. MD FLOYD Jeronimo/STEVEN /[id number]
--- NOTE | 2019-07-14 16:00 | NUR ---
patient alert and oriented with friends at bedside. Discharge instructions given at this time, patient verbalized understanding. IV discontinued at this time, catheter in tact and pressure dressing applied. Patient to be wheeled out to personal auto for daughter to drive home.
[2019-07-14 16:12] VITALS: BP 142/83
== END 2019-07-14 16:03 | disposition home or self-care (01) ==
LOC: ER 10:00 → ERHOLD 15:22 → IMCU 16:26
PROVIDERS: ADMIT Internal Medicine; ATTEND Internal Medicine
DX: R07.89 Other chest pain (principal); R10.13 Epigastric pain; I10 Essential (primary) hypertension; E11.9 Type 2 diabetes mellitus without complications; I25.10 Atherosclerotic heart disease of native coronary artery without angina pectoris; Z95.5 Presence of coronary angioplasty implant and graft; E78.5 Hyperlipidemia, unspecified; K21.9 Gastro-esophageal reflux disease without esophagitis; Z79.84 Long term (current) use of oral hypoglycemic drugs; E66.01 Morbid (severe) obesity due to excess calories; Z68.31 Body mass index [BMI] 31.0-31.9, adult
CPT/HCPCS: 36415 ×2; 71045; 80048; 80053; 81001; 82550 ×2; 82553 ×2; 83690; 83880; 84484 ×2; 85025 ×2; 85730; 93005 ×2; 99284; C9113; G0378 ×3; J2270; J2405 ×2; J7030 ×2; S0164 ×2; 82948

== ENCOUNTER → 2019-07-12 | Outpatient (CLI) | payer MEDICARE ==
[~2019-07-12] MED LIST changes: -ASPIRIN 81 MG CHEW TAB PO ONE; +IOPAMIDOL 370 MG/ML 200 ML INFUS..BTL INJ ONE; +SODIUM CHLORIDE 0.9% 50ML 50 ML ONE
[2019-07-12 09:12] LABS: BLOOD UREA NITROGEN 16 mg/dL (7-26); BUN/CREATININE RATIO 20 (6-25); CREATININE, SERUM 0.82 mg/dL (0.57-1.11); EST GLOMERULAR FILTRATION RATE > 60 ML/MIN (60-)
--- NOTE | 2019-07-12 10:08 | Diagnostic Imaging Report ---
Exam: CT abdomen and pelvis Clinical history: Abdominal pain Technique: Helical images of the abdomen and pelvis were obtained after IV contrast administration Findings: The lung bases are clear. There is no evidence of pleural effusion. The cardiac size is within normal limits. The liver, spleen, pancreas, gallbladder, adrenal glands, and kidneys are unremarkable. The small and large bowels are normal in caliber without evidence of obstruction. Small amount of retained feces are noted throughout the colon. The bladder, uterus, and ovaries are within normal limits. There is no evidence of lymphadenopathy or free fluid. The aorta and IVC are normal in caliber. Degenerative changes are noted in the lower thoracic and lumbar spines with loss in disc height and vacuum phenomena. Impression: 1. No acute abnormalities noted in the CT abdomen and pelvis. Signed by: Dr. Ulises Perkins MD on 07/12/2019 10:04 AM
== END ==
LOC: CT 07:59
PROVIDERS: ATTEND Internal Medicine Gastroenterology
DX: R10.9 Unspecified abdominal pain (principal)
CPT/HCPCS: 36415; 74177; 82565; 84520; Q9967

== ENCOUNTER 2019-09-29 10:58 | Inpatient (IN) | payer MEDICARE ==
[~2019-09-29] VITALS: Ht 154.9 cm; Wt 75.3 kg
[~2019-09-29 10:58] MED LIST changes: +AMLODIPINE BESY10 MG PO; +ASPIR 8181 MG PO; +ATORVASTATIN CA80 MG PO; +BENZONATATE100 MG PO; +CLOPIDOGREL75 MG PO; +DICYCLOMINE HCL20 MG PO; +ISOSORBIDE MONO20 MG PO; +LISINOPRIL10 MG PO; +METFORMIN HCL500 MG PO; +METOPROLOL TART50 MG PO; +NITROGLYCERIN0.4 MG SL; -ONDANSETRON HCL INJ 2MG/ML 2ML 2 MG/ML VIAL IV STA; -PANTOPRAZOLE 40 MG 10ML VIAL IV STA; +PANTOPRAZOLE SO40 MG PO; +SUCRALFATE1 GM PO
[2019-09-29] MEDS ORDERED: ASPIRIN 81 MG CHEW TAB PO ONE ×2 (11:15→14:30)
[2019-09-29 11:38] LABS: BASOPHILS # (AUTO) 0.1 (0.0-0.1); BASOPHILS % 0.6 % (0.0-1.0); EOSINOPHILS # (AUTO) 0.1 (0.0-0.4); HEMATOCRIT 35.7 % (34.2-44.1); HEMOGLOBIN 11.2 g/dL (12.0-16.0); LYMPHOCYTES # (AUTO) 2.1 (1.0-3.2); LYMPHOCYTES % 24.8 % (18.0-39.1); MEAN CORPUSCULAR HEMOGLOBIN 26.1 pg (28-32); MEAN CORPUSCULAR HGB CONC 31.4 g/dL (31-35); MEAN CORPUSCULAR VOLUME 83.2 fL (81-99); MONOCYTES # (AUTO) 0.6 (0.2-0.8); MONOCYTES % 7.5 % (4.4-11.3); NEUTROPHILS # (AUTO) 5.6 (2.1-6.9); NEUTROPHILS % 65.5 % (38.7-80.0); PLATELET COUNT 248 x10e3/uL (140-360); RED BLOOD COUNT 4.29 x10e6/uL (3.6-5.1); RED CELL DISTRIBUTION WIDTH 14.5 % (11.7-14.4)
--- NOTE | 2019-09-29 11:48 | Diagnostic Imaging Report ---
EXAMINATION: CHEST SINGLE (PORTABLE) INDICATION: Chest pain. ^ERMD ORDER ^[id number] ^1120 ^Y COMPARISON: 07/12/2019 FINDINGS: AP view TUBES and LINES: None. LUNGS: Lungs are well inflated. Pulmonary vascular congestion and mild to moderate interstitial edema. PLEURA: No significant pleural effusion or pneumothorax. HEART AND MEDIASTINUM: The cardiomediastinal silhouette is unremarkable. BONES AND SOFT TISSUES: No acute osseous lesion. Soft tissues are unremarkable. UPPER ABDOMEN: No free air under the diaphragm. IMPRESSION: Pulmonary vascular congestion and mild to moderate interstitial edema. Underlying pneumonia cannot be excluded. Signed by: Dr. Tk Dumont MD on 09/29/2019 11:45 AM
[2019-09-29 11:57] LABS: INR 0.92; PROTHROMBIN TIME 12.8 seconds (11.9-14.5)
[2019-09-29 11:58] LABS: PARTIAL THROMBOPLASTIN TIME 31.3 seconds (23.8-35.5)
[2019-09-29 12:05] LABS: ALANINE AMINOTRANSFERASE 16 IU/L (0-55); ALBUMIN 4.2 g/dL (3.5-5.0); ALBUMIN/GLOBULIN RATIO 1.6 (0.8-2.0); ALKALINE PHOSPHATASE 68 IU/L (40-150); ANION GAP 15.9 mmol/L (8-16); BLOOD UREA NITROGEN 16 mg/dL (7-26); BUN/CREATININE RATIO 20 (6-25); CALCIUM 9.6 mg/dL (8.4-10.2); CARBON DIOXIDE 20 mmol/L (22-29); CHLORIDE 107 mmol/L (98-107); CREATINE KINASE 52 IU/L (29-168); EST GLOMERULAR FILTRATION RATE > 60 ML/MIN (60-); GLUCOSE 149 mg/dL (74-118); POTASSIUM 3.9 mmol/L (3.5-5.1); SODIUM 139 mmol/L (136-145)
[2019-09-29 12:24] LABS: ABG PCO2 32 mmHg (41-51); ABG PH 7.36 (7.31-7.41)
[2019-09-29 12:25] LABS: ABG HCO3 18 mmol/L (23-28); ABG PO2 57 mmHg (80-105)
[2019-09-29] MEDS ORDERED: FUROSEMIDE INJ 10 MG/ML 4 ML VIAL IV ONE (12:30)
--- NOTE | 2019-09-29 14:00 | NUR ---
nolvia put in place
[2019-09-29] MEDS: FUROSEMIDE INJ 10 MG/ML 4 ML VIAL IV SCH (15:59)
[2019-09-29] MEDS: CLOPIDOGREL BISULFATE 75 MG TAB PO SCH (15:59)
[2019-09-29] MEDS: ENOXAPARIN INJ 80 MG/0.8 ML SYR SC SCH (15:59)
[2019-09-29] MEDS: METOPROLOL TARTRATE 50 MG TAB PO SCH (15:59)
[2019-09-29 16:00] VITALS: BP 116/70
[2019-09-29 16:09] VITALS: BP 116/70
[2019-09-29 16:19] VITALS: BP 116/70
[2019-09-29] MEDS ORDERED: INFLUENZA VIRUS VAC SPLIT INJ 0.5 ML SYR IM SCH (16:19)
[2019-09-29] MEDS ORDERED: PNEUMOCOCCAL VACCINE POLYVALENT 23 MCG/0.5 ML VIAL IM SCH (16:19)
--- NOTE | 2019-09-29 17:04 | Consultation ---
DATE OF CONSULTATION: Cardiology Consultation CONSULTING PHYSICIAN: Sanjay Nunez MD, Interventional Cardiology. REASON FOR CONSULTATION: Pulmonary edema. HISTORY OF PRESENT ILLNESS: Ms. Taylor is a 69-year-old woman with history of type 2 diabetes mellitus, hypertension, dyslipidemia, coronary artery disease, status post OM drug-eluting stent PCI for acute stent restenosis, and LAD PCI with drug-eluting stent in January 2019, preserved left ventricular systolic function on echo in January 2019 with mild LVH and is high, mild mitral and tricuspid regurgitation, and history of dyspepsia, presents with one week onset gradual progressive worsening shortness of breath, and discomfort to the back and left shoulder, worse with exertion and relieved by rest. The patient was noted to have elevated BNP and on chest x-ray. She is remarkable for sinus rhythm, left ventricular hypertrophy, repolarization abnormality. Her first troponin is 0.105. She was found to have hypoxemia on room air with O2 saturation 88% for which BiPAP was instituted. Lasix IV was given and aspirin was given in the ER. The patient has noted improvement in symptoms with resolution of shortness of breath and currently denies any presence of chest discomfort. REVIEW OF SYSTEMS: A 12-system review is negative except for as noted above. ALLERGIES: NO KNOWN DRUG ALLERGIES. PAST MEDICAL HISTORY: Remarkable for type 2 diabetes mellitus, hypertension, dyslipidemia, PAD as noted by outpatient arterial Dopplers, coronary artery disease status post previous PCI, chronic diastolic heart failure, dyspepsia. SOCIAL HISTORY: No active smoking, alcohol, or drugs. FAMILY HISTORY: Significant for diabetes. PHYSICAL EXAMINATION: VITAL SIGNS: Temperature 97.9, heart rate 82, respiratory rate is 22, O2 saturation 100% on BiPAP, blood pressure 107/88. GENERAL: In no acute distress. JVD elevated to lower third of neck. CHEST: Decreased breath sounds in bilateral bases and scattered rales. CARDIOVASCULAR: Regular rate and rhythm. Normal S1, S2. Systolic ejection murmur 1/6. No S3. Positive S4. ABDOMEN: Soft, nontender. Bowel sounds positive. EXTREMITIES: Warm, distal extremities. No edema. Decreased pedal and dorsalis pedis pulses. LABORATORY DATA: Studies reviewed, sodium 139, potassium 3.9, chloride 107, bicarbonate 20, BUN 16, creatinine 0.8, glucose 149. White blood cells 8.5, hemoglobin 11.2, platelets 248. INR 0.9. PT 12.8, PTT 31.3. ABG 7.36/32/57. BNP 986, and troponin I 0.105. AST 20, ALT 16, alkaline phosphatase 68. Total bilirubin 0.4. EKG and chest x-ray as previously described. ASSESSMENT: 1. Acute diastolic heart failure with pulmonary edema. 2. Unstable angina. 3. Coronary artery disease with history of LAD, drug-eluting stent PCI and OM drug-eluting stent PCI in 01/2019. 4. Type 2 diabetes mellitus. 5. Hypertension. 6. Dyslipidemia. 7. Coronary artery disease. 8. Left ventricular hypertrophy. RECOMMENDATIONS: 1. Continue BiPAP and consider ICU transfer from the ER. 2. Lasix 40 mg IV b.i.d. 3. Resume home dose beta-maciel, aspirin, and clopidogrel. 4. High potency statin, atorvastatin 80 mg at bedtime. 5. Lovenox therapeutic dose 1 mg/kg every 12 hours. 6. Trend cardiac enzymes. 7. Obtain echocardiogram. 8. Keep on telemetry. 9. Once more stable, we will discuss further possible coronary assessment guarded prognosis. I thank Dr. Paige for the opportunity to participate in the care of Ms. Stewart. MD FLOYD Jeronimo/STEVEN /[id number]
[2019-09-29 19:00] VITALS: BP 111/59
[2019-09-29 21:00] VITALS: BP 111/59
[2019-09-29] MEDS: ATORVASTATIN 40 MG TAB PO SCH (21:42)
[2019-09-29 23:00] VITALS: BP 103/59
[2019-09-29 23:09] LABS: CREATINE KINASE MB 3.2 ng/mL (0-5.0)
[2019-09-30 02:56] LABS: CREATINE KINASE MB 2.7 ng/mL (0-5.0)
[2019-09-30] MEDS: ENOXAPARIN INJ 80 MG/0.8 ML SYR SC SCH ×2 (03:17→14:07)
[2019-09-30 04:00] VITALS: BP 101/61
[2019-09-30 05:53] LABS: CHOL/HDL RATIO 3.2 (3.0-3.6)
[2019-09-30 06:13] LABS: THYROID STIMULATING HORMONE 0.435 uIU/mL (0.350-4.940)
[2019-09-30 07:00] VITALS: BP 118/67
[2019-09-30] MEDS: CLOPIDOGREL BISULFATE 75 MG TAB PO SCH (08:36)
[2019-09-30] MEDS: ISOSORBIDE MONONITRATE 20 MG TAB PO SCH (08:36)
[2019-09-30] MEDS: FUROSEMIDE INJ 10 MG/ML 4 ML VIAL IV SCH ×2 (08:36→17:42)
[2019-09-30] MEDS: ASPIRIN 81 MG CHEW TAB PO SCH (08:37)
[2019-09-30] MEDS: METOPROLOL TARTRATE 50 MG TAB PO SCH ×2 (10:00→17:47)
[2019-09-30 10:02] VITALS: BP 118/67
[2019-09-30 11:40] VITALS: BP 113/74
[2019-09-30] MEDS: LISINOPRIL 20 MG TAB PO SCH (14:07)
[2019-09-30] MEDS: SODIUM CHLORIDE 0.9% 1000ML 1,000 ML IV SCH (14:08)
--- NOTE | 2019-09-30 14:42 | Progress Note ---
DATE: 09/30/2019 Cardiology Progress Note SUBJECTIVE: Denies chest pain or shortness of breath. OBJECTIVE: VITAL SIGNS: Temperature 98 degrees, heart rate 78, respiratory rate 18, blood pressure 118/67, O2 saturation 98%, BMI 31.3. GENERAL: No acute distress, alert. NECK: No JVD. CHEST: Clear to auscultation. CARDIOVASCULAR: Regular rate and rhythm. Normal S1, S2. No S3, no S4. Systolic ejection murmur 1/6. ABDOMEN: Soft, nontender. Bowel sounds positive. EXTREMITIES: Trace edema. CARDIOVASCULAR MEDICATIONS: Reviewed. Aspirin 81 mg daily, furosemide 40 mg IV b.i.d., isosorbide mononitrate 60 mg daily, clopidogrel 75 mg daily, Lovenox 70 mg subcu q.12 hours, atorvastatin 80 mg at bedtime, metoprolol tartrate 50 mg b.i.d., lisinopril 40 mg daily. STUDIES: Reviewed. White blood cells 8.5, hemoglobin 11.2, platelets 248. INR 0.9. Serial troponins 0.105, then 0.464, then 0.671, then 0.713. Serial CK-MB have all been within normal reference range. Triglycerides 125, total cholesterol 126, LDL 62, HDL 39, TSH 0.4. On telemetry, in sinus rhythm. ASSESSMENT AND PLAN: 1. [id number] myocardial infarction in a patient with multivessel coronary artery disease, previous obtuse marginal and left anterior descending artery percutaneous coronary intervention. 2. Acute severe systolic heart failure with left ventricular ejection fraction 30% to 35% with regional wall motion abnormalities and anterior, septal, and apical segments (full echo report to follow, currently echo station with monitor technical difficulties, however, images and study has been reviewed). Formal report to follow once this is resolved. 3. Dyslipidemia. 4. Hypertension. 5. Type 2 diabetes mellitus. RECOMMENDATIONS: 1. The patient is doing well now on nasal cannula and off BiPAP. 2. Continue current diuretic therapy. The patient has noted resolution of symptoms. 3. Continue dual antiplatelet therapy as patient has a history of PCI in January. 4. Continue beta-maciel and ADORE inhibitor as well as high potency statin. 5. Hold Lovenox after next dose in preparation for coronary angiography and possible intervention tomorrow. 6. Keep on telemetry. 7. Overall guarded prognosis. MD FLOYD Jeronimo/STEVEN /[id number]
[2019-09-30 16:00] VITALS: BP 113/66
[2019-09-30 19:30] VITALS: BP 118/84
--- NOTE | 2019-09-30 19:30 | NUR ---
RECEIVED PT IN BED A/A/OX3 ON COMLETE BEDREST PER MD ORDERS. PT DENIES ANY PAIN, RESPIRATION EVEN AND UNLABORED. PT IS ON O2 2L VIA NC WITH SATURATION OF 99%. PT HAS A RAC 18G WITH NS INFUSING AT 75 ML/HR. PT WILL BE NPO AT [facility] FOR HEART CATH IN THE AM. +BOWEL SOUNDS NOTED, PT HAS A PUREWICK FOR URINE. NO EDEMA NOTED, ALL PULSES ARE PALPABLE, FAMILY IS AT THE BEDSIDE.
--- NOTE | 2019-09-30 21:00 | NUR ---
EVENING MEDICATIONS ARE GIVEN AND TOLERATED WELL, WILL CONTINUE TO MONITOR FOR SAFETY.
[2019-09-30] MEDS: ATORVASTATIN 40 MG TAB PO SCH (21:08)
[2019-10-01 00:05] VITALS: BP 99/49
--- NOTE | 2019-10-01 02:42 | NUR ---
PT IS ASLEEP AND RESTING WITHOUT ANY DISTRESS, WILL CONTINUE TO MONITOR.
[2019-10-01] MEDS: SODIUM CHLORIDE 0.9% 1000ML 1,000 ML IV SCH (03:28)
[2019-10-01 04:00] VITALS: BP_SYST 102; BP_SYST 168; BP_DIAS 62; BP_DIAS 90
[2019-10-01 05:37] LABS: AMPHETAMINES SCREEN,URINE N (NEGATIVE); PHENCYCLIDINE SCREEN,URINE N (NEGATIVE)
[2019-10-01 05:38] LABS: BENZODIAZEPINES SCREEN,URINE N (NEGATIVE)
--- NOTE | 2019-10-01 05:50 | Progress Note ---
DATE: SUBJECTIVE: The patient did well overnight. No new issues. Troponins are trending downwards. She did have an echo showing an ejection fraction of 30%. OBJECTIVE: VITAL SIGNS: Temperature 97.6, pulse 72, blood pressure 99/49, and sats 98% on nasal cannula. GENERAL: No apparent distress, lying in bed. NECK: Supple. No JVD. CARDIOVASCULAR: Regular rate and rhythm. LUNGS: Decreased breath sounds bilaterally. ABDOMEN: Good bowel sounds. Soft and nontender. EXTREMITIES: No clubbing or cyanosis. NEUROLOGIC: Nonfocal. ASSESSMENT AND PLAN: 1. Acute systolic heart failure. Continue with medications per Cardiology. 2. Non ST-segment elevated MD. The patient to have coronary angiogram most likely today and continue with medical care. 3. Hypertension. Continue with current care. 4. Hyperlipidemia. Continue with her Lipitor. 5. Diabetes. Continue to monitor. Please see hospital chart for full details. MD NORMA York/STEVEN /[id number]
[2019-10-01] MEDS: METOPROLOL TARTRATE 50 MG TAB PO SCH (07:37)
[2019-10-01] MEDS: ISOSORBIDE MONONITRATE 20 MG TAB PO SCH (07:37)
[2019-10-01] MEDS: FUROSEMIDE INJ 10 MG/ML 4 ML VIAL IV SCH (07:37)
[2019-10-01] MEDS: ASPIRIN 81 MG CHEW TAB PO SCH (07:37)
[2019-10-01] MEDS: LISINOPRIL 20 MG TAB PO SCH (07:38)
[2019-10-01] MEDS: CLOPIDOGREL BISULFATE 75 MG TAB PO SCH (07:38)
[2019-10-01 07:39] VITALS: BP 98/56
[2019-10-01 07:40] VITALS: BP 98/56
[2019-10-01] MEDS ORDERED: LIDOCAINE HCL 2% LOCAL 20 ML VIAL ONE (10:02)
[2019-10-01] MEDS ORDERED: FENTANYL CITRATE/PF 100MCG/2 ML INJ ONE (10:02)
[2019-10-01] MEDS ORDERED: MIDAZOLAM HCL 2 MG/2 ML VIAL ONE (10:02)
[2019-10-01] MEDS ORDERED: SODIUM CHLORIDE 0.9% 1000ML 1,000 ML ONE (10:03)
[2019-10-01] MEDS ORDERED: IOPAMIDOL 370 MG/ML 200 ML INFUS..BTL INJ ONE (10:03)
[2019-10-01] MEDS ORDERED: HEPARIN SOD/SOD CHLORIDE 2,000 ML ONE (10:03)
--- NOTE | 2019-10-01 10:20 | NUR ---
pt off unit for procedure
[2019-10-01 11:32] LABS: CREATINE KINASE MB 1.2 ng/mL (0-5.0)
[2019-10-01] MEDS ORDERED: HEPARIN SOD/SOD CHLORIDE 1,000 ML ONE (11:32)
[2019-10-01] MEDS ORDERED: HEPARIN 25,000U/0.45% NS 250ML 250 ML IV ONE (11:56)
[2019-10-01] MEDS ORDERED: HEPARIN 25,000 UNIT 700 UNIT in DEXTROSE 5% 250ML 250 ML IV SCH (12:00)
[2019-10-01] MEDS ORDERED: ONDANSETRON HCL INJ 2MG/ML 2ML 2 MG/ML VIAL ONE (12:09)
--- NOTE | 2019-10-01 13:23 | Operative Report ---
DATE OF PROCEDURE: 10/01/2019 SURGEON: Sanjay Nunez MD Cardiac Catheterization PROCEDURE INDICATION: Hqi-GK-xtjjuvpez myocardial infarction and acute systolic heart failure in a patient with history of CAD. PROCEDURES PERFORMED: 1. Left heart catheterization. 2. Selective coronary angiography. 3. Left ventriculography. 4. Intra-aortic balloon pump placement with one-to-one augmentation. PROCEDURE COMPLICATIONS: None. ESTIMATED BLOOD LOSS: Less than 15 mL. DESCRIPTION OF PROCEDURE: After consent was obtained, the patient was prepped and draped in a sterile fashion. Right femoral site was locally infiltrated with 2% lidocaine with micropuncture kit. A 6-[place] sheath was placed and JL4 6-[place] and JR4 6-[place] catheters were used for engagement of left main and right coronary artery with angiography performed in multiple views. The aortic valve was crossed with a pigtail catheter 6-[place] in size and LV-gram was performed. The following findings were noted after which, intra-aortic balloon pump was placed over the wire with balloon pump augmentation confirmed one-to-one and device sutured in place. The following findings were noted. 1. Left main large in caliber with luminal irregularities gives an LAD and circumflex. 2. The LAD has ostial 95% to 98% stenosis with heavy calcium. It gives a couple of diagonals and multiple septal perforators and diagonals that are small in caliber. The mid LAD has a stent that has 90% proximal, 95% mid in-stent restenosis. The distal and apical LAD seem to be underfilled with DUSTIN 2 flow noted throughout the LAD. The LAD wraps around and feeds part of the apical inferior segment of LV myocardium. 3. The circumflex is large caliber, gives a high take of first obtuse marginal that has 30% focal stenosis prior to a patent OM stent. The rest of the circumflex remains to be large in caliber with luminal irregularities and gives to left posterolateral branches and left PDA. It is a dominant circumflex. 4. The right coronary artery is nondominant, small in caliber with luminal irregularities and gives to RV marginals. 5. LV-gram reveals akinesis of mid to apical anterior and apical inferior segment of LV myocardium with LVEF 25% to 30%. 6. LV pressure is 129/5 with end-diastolic pressure of 12-17. 7. The aortic pressure is 127/56. CONCLUSION: A critical stenosis of ostial LAD with tandem lesions of the proximal to mid LAD and DUSTIN 2 flow to LAD. Recommend emergent transfer to [facility] for aortic coronary bypass, ARIAS to LAD. Intra-aortic balloon pump at one-to-one augmentation. Heparin drip while intra-aortic balloon pump in place. Keep n.p.o. Sanjay Nunez MD AFLottie/MODL /[id number]
--- NOTE | 2019-10-01 13:28 | Progress Note ---
DATE: 10/01/2019 Cardiology Progress Note SUBJECTIVE: Denies any chest pain or shortness of breath. OBJECTIVE: VITAL SIGNS: Temperature 97.8, heart rate 60, blood pressure 98/56, O2 saturation 100%, respiratory rate 20, and BMI 31.3. GENERAL: In no acute distress. Alert. NECK: No JVD. CHEST: Clear to auscultation. CARDIOVASCULAR: Regular rate and rhythm. Normal S1 and S2. ABDOMEN: Soft and nontender. Bowel sounds positive. EXTREMITIES: No edema. CARDIOVASCULAR MEDICATIONS: Reviewed. Atorvastatin 80 mg at bedtime, lisinopril 40 mg daily, clopidogrel 75 mg daily, metoprolol tartrate 50 mg b.i.d., furosemide 40 mg b.i.d., and isosorbide mononitrate 60 mg daily. STUDIES: Reviewed. Sodium 139, potassium 3.9, chloride 107, bicarbonate 20, BUN 16, creatinine 0.8, and glucose 149. White blood cells 8.5, hemoglobin 11.2, and platelets 248. INR 0.9. AST 20, ALT 16, and alkaline phosphatase 68. ASSESSMENT AND PLAN: 1. A 69-year-old woman presents with acute severe systolic heart failure with LVEF 30% to 35% on echocardiogram and 25% on LV-gram with akinesis of septum and mid to apical anterior and apical inferior segments of LV myocardium on LV-gram. 2. Severe coronary artery disease with ostial LAD lesion and tandem mid LAD lesions with DUSTIN-2 flow. 3. LVEDP 12 to 17. 4. Diabetes mellitus. 5. Hypertension. 6. Dyslipidemia. 7. Morbid obesity with BMI of 31. RECOMMENDATIONS: 1. Emergent transfer to [facility] for aortocoronary bypass, ARIAS to LAD. The patient is status post intra-aortic balloon pump 1:1. She is currently chest pain-free without shortness of breath and , however, there is a critical lesion of the ostial LAD. Given diabetes and heart failure, best served with bypass ARIAS to LAD. I have made contact with [facility] in [facility], who will accept transfer and initiated lifeline. 2. Continue current cardiovascular medications. 3. Heparin IV drip in the meantime balloon pump 1:1. Keep n.p.o. MD FLOYD Jeronimo/CALEBL /[id number]
--- NOTE | 2019-10-01 13:33 | NUR ---
per label stitcher nurse, pt will be transferring out
--- NOTE | 2019-10-01 15:30 | NUR ---
Report called to Lydia POLK on . Number given to nurse for further questions if she needed to call.
--- NOTE | 2019-10-01 16:35 | NUR ---
Patient released to [facility] nurse and tech patient on balloon pump 1:1. Patient still on heparin drip at 12 unit/kg/hr per order. IABP Mean of 107 and Augmenting 136. Patient on 2L O2 at 98%. Sheath site clean dry and intact dressing and groin soft to the touch no hematoma noted. Patient pulses 1/1 bilaterally. Patient IV 18 to left antecubital intact and flowing with no issues. Patient placed on lifeflight balloon pump with no issues.
--- NOTE | 2019-10-02 11:18 | Discharge Summary ---
DISCHARGE DIAGNOSES: 1. Non ST-segment elevated myocardial infarction. 2. Acute systolic heart failure. 3. Three-vessel coronary artery disease. DISPOSITION: The patient was transferred downtown for emergent bypass. HISTORY OF PRESENT ILLNESS AND HOSPITAL COURSE: The patient is a lady, who presented with chest pain, shortness of breath, was found to have a non ST-segment elevated MS. Echo showed an EF of 15%, which is new for the patient and then she had a coronary catheterization done that showed severe three-vessel disease, where she was then immediately transferred downtown by Dr. Nunez for emergent CABG. The patient actually did quite well in the hospital with minimal complaints. Please see hospital chart for full details. MD NORMA York/STEVEN /[id number]
== END 2019-10-01 15:20 | disposition short-term general hospital (02) | DRG 270 ==
LOC: ER 10:58 → ERHOLD 12:39 → IMCU 15:42
PROVIDERS: ADMIT Internal Medicine; ATTEND Internal Medicine
PROC: 4A023N7 Measurement of Cardiac Sampling and Pressure, Left Heart, Percutaneous Approach (ICD-10-PCS; principal; 2019-10-01)
PROC: 5A02210 Assistance with Cardiac Output using Balloon Pump, Continuous (ICD-10-PCS; 2019-10-01)
PROC: B2111ZZ Fluoroscopy of Multiple Coronary Arteries using Low Osmolar Contrast (ICD-10-PCS; 2019-10-01)
PROC: B2151ZZ Fluoroscopy of Left Heart using Low Osmolar Contrast (ICD-10-PCS; 2019-10-01)
DX: I21.4 Non-ST elevation (NSTEMI) myocardial infarction (principal); I50.23 Acute on chronic systolic (congestive) heart failure; T82.855A Stenosis of coronary artery stent, initial encounter; I25.110 Atherosclerotic heart disease of native coronary artery with unstable angina pectoris; E11.9 Type 2 diabetes mellitus without complications; I11.0 Hypertensive heart disease with heart failure; E78.5 Hyperlipidemia, unspecified; Z95.5 Presence of coronary angioplasty implant and graft; R09.02 Hypoxemia; E66.01 Morbid (severe) obesity due to excess calories; Z68.31 Body mass index [BMI] 31.0-31.9, adult
CPT/HCPCS: 33970; 36415; 36600; 71045; 80053; 80061; 80307; 82550; 82553; 82805; 83036; 83880; 84443; 84484; 85025; 85610; 85730; 93005; 93306; 93458; 94660; 99152; 99153; 99284; C1766; C1769; J1644; J1650; J1940; J2001; J2250; J2405; J3010; J7030; Q9967

== ENCOUNTER 2022-04-05 18:07 | Emergency (ER) | payer MEDICARE ==
[~2022-04-05] VITALS: Ht 154.9 cm; Wt 75.3 kg
[2022-04-05 19:08] LABS: BASOPHILS % 0.4 % (0.0-1.0); EOSINOPHILS # (AUTO) 0.2 (0.0-0.4); EOSINOPHILS % 1.9 % (0.0-6.0); HEMATOCRIT 37.4 % (34.2-44.1); HEMOGLOBIN 11.9 g/dL (12.0-16.0); LYMPHOCYTES # (AUTO) 2.4 (1.0-3.2); LYMPHOCYTES % 28.4 % (18.0-39.1); MEAN CORPUSCULAR HGB CONC 31.8 g/dL (31-35); MONOCYTES # (AUTO) 0.6 (0.2-0.8); NEUTROPHILS # (AUTO) 5.2 (2.1-6.9); NEUTROPHILS % 61.8 % (38.7-80.0); PLATELET COUNT 312 x10e3/uL (140-360); RED CELL DISTRIBUTION WIDTH 14.2 % (11.7-14.4)
[2022-04-05 19:17] LABS: INR 0.91; PROTHROMBIN TIME 13.1 seconds (11.9-14.5)
[2022-04-05 19:18] LABS: PARTIAL THROMBOPLASTIN TIME 29.2 seconds (23.8-35.5)
[2022-04-05 19:25] LABS: ALBUMIN 3.9 g/dL (3.5-5.0); ALBUMIN/GLOBULIN RATIO 1.1 (0.8-2.0); CALCIUM 9.2 mg/dL (8.4-10.2); CREATININE, SERUM 1.07 mg/dL (0.57-1.11)
[2022-04-05 23:48] LABS: CLARITY,URINE CLEAR (CLEAR); COLOR,URINE YELLOW (YELLOW); KETONES,URINE NEGATIVE (NEGATIVE); LEUKOCYTE ESTERASE ,URINE NEGATIVE (NEGATIVE); NITRITE,URINE NEGATIVE (NEGATIVE); PROTEIN,URINE DIPSTICK NEGATIVE (NEGATIVE); URINE UROBILINOGEN 0.2 mg/dL (0.2 - 1)
[2022-04-05 23:54] LABS: BACTERIA,URINE FEW /HPF; EPITHELIAL CELLS,URINE FEW /LPF; RBC,URINE 0-5 /HPF (0-5); WBC,URINE (MAN) 0-5 /HPF (0-5)
[2022-04-06 00:22] VITALS: BP 161/95
== END 2022-04-05 21:00 | disposition other institution (70) ==
LOC: ER 18:21
DX: G45.9 Transient cerebral ischemic attack, unspecified (principal); I10 Essential (primary) hypertension; E11.9 Type 2 diabetes mellitus without complications; I25.10 Atherosclerotic heart disease of native coronary artery without angina pectoris; K21.9 Gastro-esophageal reflux disease without esophagitis; I25.2 Old myocardial infarction; Z95.5 Presence of coronary angioplasty implant and graft; Z20.822 Contact with and (suspected) exposure to COVID-19
CPT/HCPCS: 36415; 70450; 71045; 80053; 81001; 84484; 85025; 85610; 85730; 99284; U0002